=== PATIENT | male | born 1975 | race Two or more races ===

== ENCOUNTER 2024-09-01 12:55 | Day surgery (SDC) | payer OTHER, SELFPAY ==
[2024-08-31 15:07] VITALS: BMI 25.3
[2024-09-01] VITALS (10 sets, daily range): BP systolic 128–162; BP diastolic 91–108; PULSE 82–93; RESP 14–19; TEMP 36.4–37.1; O2SAT 87–100; BMI 24.9
[2024-09-01] MEDS: RINGERS LACTATED 1000 ML 1,000 ML 100 ML IV (14:27)
[2024-09-01] MEDS: fentaNYL CIT INJ 50 mCg/ML AMP 2ML (ASD USE ONLY) IVP (14:28)
[2024-09-01] MEDS: MIDAZOLAM INJ 1 MG/ML VIAL 2 ML (ASD USE ONLY) 2 MG IVP (14:28)
== END 2024-09-01 15:25 | disposition home or self-care (01) ==
PROVIDERS: PCP Internal Medicine; Referring Provider Surgery; Visit Provider Surgery
PROC: 0DBE8ZX Excision of Large Intestine, Via Natural or Artificial Opening Endoscopic, Diagnostic (ICD-10-PCS; CPT 45380; principal; 2024-09-01 13:45)
DX: Z12.11 Encounter for screening for malignant neoplasm of colon (principal); Z80.0 Family history of malignant neoplasm of digestive organs; E11.9 Type 2 diabetes mellitus without complications; I10 Essential (primary) hypertension; J45.909 Unspecified asthma, uncomplicated
CPT/HCPCS: 45378; A4217; J2250; J3010; J7120

== ENCOUNTER 2024-10-08 06:10 | Day surgery (SDC) | payer OTHER, SELFPAY ==
--- NOTE | 2024-10-06 12:13 | EKG_ITS ---
[facility] Test Date: 2024-10-06 Pat Name: CARIN ELIAS Department: Room: - Gender: Male Vice President Of Product Marketing: ROMULO : 1975 Requested By: Benji Aguayo Order Number: [id number] Reading MD: Benji Aguayo Measurements Intervals [place]is Rate: 79 P: 25 CT: 150 QRS: 16 QRSD: 82 T: 37 QT: 345 QTc: 397 Interpretive Statements SINUS RHYTHM No previous ECG available for comparison /[id number]/[email or web address]/[id number]
[2024-10-06 14:39] VITALS: BMI 25.3
[2024-10-06 15:01] LABS: Collection Type, Urine Clean Catch
[2024-10-06 15:25] LABS: Bilirubin,Urine Negative (Negative); Blood,Urine Negative (Negative); Clarity,Urine Clear (Clear/Hazy); Color,Urine Colorless (Lt Yel-Yel); Glucose, Urine 1+ (Negative); Ketones,Urine Negative (Negative); Leukocyte Esterase,Urine Negative (Negative); Nitrite,Urine Negative (Negative); PH,Urine 6.5 (5.0-7.0); Protein,Urine Negative (Neg - Trace); RBC,Urine < 1 /hpf (0-3); Specific Gravity,Urine 1.006 (1.001-1.035); Squamous Epithelial Cell,Urine < 1 /hpf (0-5); Urobilinogen,Urine Negative mg/dL (0.0-1.0); WBC,Urine < 1 /hpf (0-5)
[2024-10-06 15:26] LABS: Basophils # (Auto) 0.1 Thou/mm3 (0.0-0.2); Basophils % (Auto) 1 % (0-2.5); Eosinophils # (Auto) 0.2 Thou/mm3 (0.0-0.5); Eosinophils % (Auto) 3 % (0-10); Hematocrit 36.2 % (41.0-53.0); Hemoglobin 12.6 g/dL (13.5-16.0); Immature Granulocytes Auto 0.03 Thou/mm3 (0.00-0.00); Lymphocytes # (Auto) 2.1 Thou/mm3 (1.0-4.8); Lymphocytes % (Auto) 32 % (10-50); Mean Corpuscular HGB Conc 34.8 g/dl (31.0-37.0); Mean Corpuscular Hemoglobin 29.4 pg (25.0-35.0); Mean Corpuscular Volume 84 fL (80-100); Monocytes # (Auto) 0.6 Thou/mm3 (0.0-0.8); Monocytes % (Auto) 10 % (0-12); Neutrophils # (Auto) 3.6 Thou/mm3 (1.8-7.7); Neutrophils % (Auto) 54 % (37-80); Nucleated Red Blood Cell # 0.00 Thou/mm3 (0.00-0.00); Nucleated Red Blood Cell % 0 /100 WBC (0); Platelet Count 215 Thou/mm3 (140-440); RDW Standard Deviation 36.4 fL (35.1-43.9); Red Blood Count 4.29 Miln/mm3 (4.50-5.90); White Blood Count 6.6 Thou/mm3 (3.8-10.6)
[2024-10-06 15:36] LABS: Alanine Aminotransferase 21 U/L (10-49); Albumin, Serum 4.5 gm/dL (3.5-5.0); Albumin/Globulin Ratio 1.8 (1.2-2.2); Alkaline Phosphatase 70 U/L (46-116); Anion Gap 8 (7-16); Aspartate Amino Transferase 20 U/L (0-34); BUN/Creatinine Ratio 15 Ratio (12-20); Bilirubin,Total 0.9 mg/dL (0.3-1.2); Blood Urea Nitrogen 12 mg/dL (9-23); Calcium 9.6 mg/dL (8.3-10.6); Calcium (Corrected) 9.6 mg/dL (8.5-10.1); Carbon Dioxide 28.8 mMol/L (20.0-31.0); Chloride 98 mMol/L (98-107); Creatinine (Component) 0.8 mg/dL (0.6-1.3); Estimated Creatinine Clearance 103.3 mL/min (>60); Globulin 2.5 gm/dL (2.3-3.5); Glucose 180 mg/dL (74-106); Osmolality,Calculated 274 (275-295); Potassium 4.2 mMol/L (3.4-5.1); Sodium 135 mMol/L (136-145); Total Protein 7.0 gm/dL (5.7-8.2); eGFR > 60 See Note
--- NOTE | 2024-10-07 15:48 | ESHP_ITS ---
RE: CARIN ELIAS : 1975 DATE OF ADMISSION: 10/07/2024 HISTORY OF PRESENT ILLNESS: The patient is a 48-year-old gentleman with tight phimosis. He is scheduled to have circumcision. He also is complaining of the pain in his testis. PAST MEDICAL HISTORY: He has a history of diabetes mellitus and history of hypertension. PAST SURGICAL HISTORY: Left leg operation and tonsillectomy. HOME MEDICATIONS: He is taking 1. Coreg. 2. Metformin. 3. Cozaar. ALLERGIES: HE IS ALLERGIC TO AMPICILLIN, PENICILLIN, AND ASPIRIN. SOCIAL HISTORY: He has 4 children. PHYSICAL EXAMINATION: VITAL SIGNS: The patient weighs 235 pounds. He has been losing weight now. HEENT: Normal. NECK: Supple. LUNGS: Clear. CARDIOVASCULAR: Heart sounds are normal. ABDOMEN: Soft. GENITOURINARY: Phallus reveals tight phimosis. Testes are down scrotum. IMPRESSION: 1. Tight phimosis. 2. Diabetes mellitus. 3. Hypertension. PLAN: Circumcision. Planned procedure risks and complications have been discussed with the patient. The patient has agreed to proceed. cc: Alexi Caban MD DT: 14:45:49 TT: 15:46:00 Ref: [id number] - TID: [id number]
[2024-10-08] VITALS (7 sets, daily range): BP systolic 131–157; BP diastolic 87–101; PULSE 79–99; RESP 14–19; TEMP 36.2–36.4; O2SAT 96–100; BMI 25.9
[2024-10-08] MEDS: RINGERS LACTATED 1000 ML 1,000 ML 20 ML IV (07:00)
--- NOTE | 2024-10-08 07:26 | SUR.PREOP ---
Patient expressed gratitude for prayer before their procedure.
--- NOTE | 2024-10-08 09:40 | SUR.PHASEI ---
pt received from OR in recovery bay 3. pt asleep but responds to voice, breathing unlabored on oxymask 6l. v/s stable. pt dressing to penis cdi. report received from Koby MARTINEZ and Keke AMOR.
--- NOTE | 2024-10-08 09:54 | SUR.PHASEI ---
pt able to tolerate oral fluids without difficulty swallowing or nausea/vomiting.
--- NOTE | 2024-10-08 10:40 | SUR.PHASEII ---
pt awake and alert, breathing unlabored on room air. v/s stable. pt dressing to penis cdi. pt able to ambulate to wheelchair with steady gait. d/c instructions given with friend Wanda in room, all questions answered. pt d/c via wheelchair with all belongings.
--- NOTE | 2024-10-08 11:23 | ESOP_ITS ---
RE: CARIN ELIAS : 1975 DATE OF OPERATION: 10/08/2024 PREOPERATIVE DIAGNOSES: Tight phimosis and diabetes mellitus. POSTOPERATIVE DIAGNOSES: Tight phimosis and diabetes mellitus. PROCEDURE PERFORMED: Circumcision. ANESTHESIA: General by Mr. Koby CRNA. INDICATION: The patient is a 49-year-old gentleman who was referred to me with a history of tight phimosis. He is diabetic and on medications. He is now scheduled to have circumcision. Planned procedure, risks, and complications have been discussed with the patient. The patient understood them and agreed to proceed. DESCRIPTION OF PROCEDURE: After the patient was brought to the operating table under adequate general anesthesia and supine position, parts were prepped and draped in the usual fashion. A circumcision was then carried out in a standard fashion by excising the foreskin in a circumferential manner at the level of hoffman glandis. Complete hemostasis was obtained by using electrocoagulation. Skin was reapproximated back by placing interrupted sutures of 3-0 chromic catgut. Local anesthetic was injected at the base of the penis. Sterile dressing was then applied. The patient was then transferred to the recovery room in a satisfactory condition having tolerated the entire procedure well. Sponge count and needle count at the end of the procedure was found to be correct. Estimated blood loss was approximately 5 mL. cc: Alexi Caban MD DT: 09:54:16 TT: 11:21:00 Ref: [id number] - TID: [id number]
== END 2024-10-08 10:40 | disposition home or self-care (01) ==
PROVIDERS: Anesthesiology; PCP Internal Medicine; Referring Provider Surgery; Visit Provider Surgery
PROC: (CPT 54161; principal; 2024-10-08 08:30)
DX: N47.1 Phimosis (principal); I10 Essential (primary) hypertension; E11.9 Type 2 diabetes mellitus without complications; Z01.810 Encounter for preprocedural cardiovascular examination
CPT/HCPCS: 54161; 36415; 80053; 81001; 85025; 87086; 93005; A4217; A4649; J1956; J2250; J2704; J3010; J3490; J7120; A9270; J0665; J1596